=== PATIENT | male | born 1980 | race Caucasian/White ===

== ENCOUNTER 2018-06-21 14:48 | Inpatient (IN) | payer OTHER ==
[~2018-06-21] VITALS: Ht 177.8 cm; Wt 97.5 kg
[~2018-06-21 14:48] MED LIST: CRUTCH4 XX; IBUP800 PO; Naprosyn500 MG PO; Norco 5-325 Ta1 EACH PO; Zofran Odt4 MG PO; Zofran Odt4 MG SL
[2018-06-21 15:59] LABS: BASOPHILS ABSOLUTE AUTO 0.02 K/mm3 (0.00-0.23); BASOPHILS PERCENT AUTO 0 % (0-2); EOSINOPHILS ABSOLUTE AUTO 0.01 K/mm3 (0.00-0.68); EOSINOPHILS PERCENT AUTO 0 % (0-6); Hematocrit 49.1 % (37.0-53.0); Hemoglobin 16.3 g/dL (13.5-17.5); IMMATURE GRAN ABSOLUTE AUTO 0.05 K/mm3 (0.00-0.10); IMMATURE GRAN PERCENT AUTO 0 % (0-1); LYMPHOCYTES ABSOLUTE AUTO 2.07 K/mm3 (0.84-5.20); LYMPHOCYTES PERCENT AUTO 15 % (21-46); MONOCYTES ABSOLUTE AUTO 1.02 K/mm3 (0.16-1.47); MONOCYTES PERCENT AUTO 7 % (4-13); Mean Corpuscular HGB 29.1 pg (26.0-34.0); Mean Corpuscular HGB Conc 33.2 g/dL (31.5-36.5); Mean Corpuscular Volume 88 fL (80-100); Mean Platelet Volume 8.7 fL (9.1-12.4); NEUTROPHILS ABSOLUTE AUTO 10.93 K/mm3 (1.96-9.15); NEUTROPHILS PERCENT AUTO 78 % (41-73); Platelet Count 306 K/mm3 (150-400); RDW Coefficient Variation 12.5 % (11.7-14.2); RDW Standard Deviation 40.3 fL (35.1-46.3)
[2018-06-21 16:16] LABS: Alanine Aminotransfer (ALT/SGP 32 U/L (12-78); Albumin, Blood 4.4 g/dL (3.4-5.0); Albumin/Globulin Ratio 1.1 (0.8-1.8); Alk Phos 85 U/L (50-136); Anion Gap 8 mmol/L (6-16); Aspartate Aminotrans (AST/SGOT 22 U/L (12-37); Bilirubin, Total 1.5 mg/dL (0.1-1.0); Blood Urea Nitrogen 12 mg/dL (8-24); Bun/Creatinine Ratio 13.3 (12.0-20.0); CO2, Blood 25 mmol/L (21-32); Calcium, Blood 8.9 mg/dL (8.5-10.1); Chloride, Blood 102 mmol/L (98-108); Globulin, Blood 4.1 g/dL (2.2-4.0); Glomerular Filtration Rate >60 (60-); Glucose, Blood 103 mg/dL (70-99); Potassium, Blood 3.8 mmol/L (3.5-5.5); Sodium, Blood 135 mmol/L (136-145); Total Protein, Blood 8.5 g/dL (6.4-8.2)
[2018-06-22 05:36] LABS: Hematocrit 43.6 % (37.0-53.0); Hemoglobin 14.5 g/dL (13.5-17.5); Mean Corpuscular HGB 29.3 pg (26.0-34.0); Mean Corpuscular HGB Conc 33.3 g/dL (31.5-36.5); Mean Corpuscular Volume 88 fL (80-100); Platelet Count 268 K/mm3 (150-400); RDW Coefficient Variation 12.5 % (11.7-14.2); RDW Standard Deviation 40.2 fL (35.1-46.3); Red Blood Cell Count 4.95 M/mm3 (4.30-5.90); White Blood Cell Count 11.16 K/mm3 (4.00-11.30)
--- NOTE | 2018-06-22 06:21 | NUR ---
SHIFT SUMMARY PT ARRIVED TO ROOM APPROX 2029. A/O. ONLY C/O PAIN IN HEAD. REFUSED TRAMADOL AND MEDICATED PER EMAR C TYLENOL. SCD'S IN PLACE. WALKING ON L KNEE INDEPENDENTLY BUT WITH A SLIGHT LIMP. CALL LIGHT IN REACH.
--- NOTE | 2018-06-22 14:50 | NUR ---
CONSULT CALLED DR [facility] TO CONFIRM CONSULT HAS BEEN CALLED, THEY CONFIRMED THE CONSULT HAD BEEN DELIVERED TO DR YANEZ
--- NOTE | 2018-06-22 14:52 | NUR ---
LEG REDNESS DR YO NOTIFIED THAT THE REDNESS SURROUNDING THE PT'S L KNEE HAS INCREASED, AREA CIRCLED, NO INCREASE IN SWELLING
--- NOTE | 2018-06-22 16:47 | NUR ---
CONSULT NOTIFIED DR YO THAT DR YANEZ HAS NOT SEEN THE PT YET
--- NOTE | 2018-06-22 17:39 | NUR ---
SUMMARY PT AWAKE IN BED EATING HIS DINNER, PT HAS BEEN PLEASANT AND COOPERATIVE WITH CARE, DR YANEZ HAS NOT SEEN THE PT YET, DR YO AWARE, VSS, NO ACUTE CHANGES, WILL CONT TO MONITOR
--- NOTE | 2018-06-22 18:39 | NUR ---
DR YANEZ HERE TO SEE THE PT
--- NOTE | 2018-06-22 20:57 | NUR ---
NO ACUTE CHANGES NOTED. NO CURRENT COMPLAINTS OF PAIN OR DISCOMFORT NOTED. WILL CONTINUE TO MONITOR FOR CHANGES.
--- NOTE | 2018-06-22 22:03 | NUR ---
2030 REPORT RECEIVED. PTS LEFT KNEE WARM TO TOUCH WITH REDNESS AND SCABBED AREA AT KNEE CAP NOTED. PT HAPPY AND COOPERATIVE.
--- NOTE | 2018-06-23 04:58 | NUR ---
38 Y/O MALE STILL C/O LEFT KNEE PAIN WITH ULTRAM 50MG PO GIVEN WITH RELIEF. PTS LEFT KNEE STILL RED RED AND WARM TO TOUCH. PT DENIES NAUSEA. PTS CALL LIGHT AT SIDE WITH BED IN LOW POSITION.
--- NOTE | 2018-06-23 17:36 | NUR ---
SHIFT SUMMARY PT HAS HAD NO ACUTE CHANGES THIS SHIFT, MEDICATED PER MAR FOR PAIN, NO OTHER COMPLAINTS OF ANY KIND. PT IS BEDRESTING AT THIS TIME, WILL CONT TO MONITOR UNTIL REPORT GIVEN TO DEYANIRA RN.
--- NOTE | 2018-06-24 05:02 | NUR ---
SHIFT SUMMARY PT HAS RESTED OFF AND ON T/O THE NIGHT. INTERMITTENT PAIN TO LEFT ANKLE. ANKLE REMAINS SWOLLEN. MEDICATED WITH ULTRAM WHICH PROVIDED RELIEF. TEMP OF 101 THIS SHIFT, THAT RESPONDED TO TYLENOL. PT INDEPENDENT IN THE ROOM. IV ABX PER ORDERS. PLAN FOR POSSIBLE DC TODAY. WILL CONTINUE TO MONITOR AND REPORT TO ONCOMING RN.
[2018-06-24] MEDS ORDERED: COLCHICINE0.6 MG PO (14:56)
[2018-06-24] MEDS ORDERED: ACET325 PO (14:56)
[2018-06-24] MEDS ORDERED: CEPH500 PO (14:57)
[2018-06-24] MEDS ORDERED: SACC250C PO (14:57)
[2018-06-24] MEDS ORDERED: IBUP400 PO (14:57)
[2018-06-24] MEDS ORDERED: NICO21TP TOP (14:57)
--- NOTE | 2018-06-24 15:51 | NUR ---
SHIFT SUMMARY/DC OK HAS HAD NO ACUTE CHANGES THIS SHIFT, NO COMPLAINTS OF ANY KIND. REVIEWED DC INSTRUCTIONS W/PT WHO VERBALIZED UNDERSTANDING. PT WAS TRANSPORTED VIA W/C TO DC IN PRIVATE VEHICLE @ [id number].
== END 2018-06-24 15:37 | disposition home or self-care (01) | DRG 872 ==
LOC: ER 14:48 → MEDS 18:46
PROVIDERS: Nurse Practitioner Acute Care; Physician Assistant; ADMIT Internal Medicine
DX: A41.9 Sepsis, unspecified organism (principal); L03.116 Cellulitis of left lower limb; I10 Essential (primary) hypertension; M70.42 Prepatellar bursitis, left knee; W18.30XA Fall on same level, unspecified, initial encounter; M10.072 Idiopathic gout, left ankle and foot; F17.220 Nicotine dependence, chewing tobacco, uncomplicated
CPT/HCPCS: 36415; 73502; 73564; 73610; 76882; 80053; 83605; 83735; 85025; 85027; 87040; 90471; 90714; 96365; 99285-25; J0690; J2405; J7030

== ENCOUNTER 2019-05-27 21:49 | Emergency (ER) | payer OTHER ==
[~2019-05-27] VITALS: Ht 177.8 cm; Wt 90.7 kg
[~2019-05-27 21:49] MED LIST changes: +ACET325 PO; +CEPH500 PO; +COLCHICINE0.6 MG PO; +IBUP400 PO; +NICO21TP TOP; +SACC250C PO
[2019-05-27 23:04] LABS: Influenza A Negative (NEGATIVE); Influenza B Negative (NEGATIVE)
== END 2019-05-28 02:45 | disposition left against medical advice (07) ==
LOC: ER 21:49
PROVIDERS: Physician Assistant
DX: Z53.21 Procedure and treatment not carried out due to patient leaving prior to being seen by health care provider (principal)
CPT/HCPCS: 71046; 87804

== ENCOUNTER 2020-05-06 19:54 | Emergency (ER) | payer OTHER ==
[~2020-05-06] VITALS: Ht 177.8 cm; Wt 90.7 kg
[2020-05-06 20:40] LABS: BASOPHILS ABSOLUTE AUTO 0.03 K/mm3 (0.00-0.23); BASOPHILS PERCENT AUTO 0 % (0-2); EOSINOPHILS ABSOLUTE AUTO 0.19 K/mm3 (0.00-0.68); EOSINOPHILS PERCENT AUTO 2 % (0-6); Hematocrit 47.5 % (37.0-53.0); Hemoglobin 16.1 g/dL (13.5-17.5); IMMATURE GRAN ABSOLUTE AUTO 0.02 K/mm3 (0.00-0.10); IMMATURE GRAN PERCENT AUTO 0 % (0-1); LYMPHOCYTES ABSOLUTE AUTO 2.57 K/mm3 (0.84-5.20); LYMPHOCYTES PERCENT AUTO 27 % (21-46); MONOCYTES ABSOLUTE AUTO 1.01 K/mm3 (0.16-1.47); MONOCYTES PERCENT AUTO 11 % (4-13); Mean Corpuscular HGB 29.4 pg (26.0-34.0); Mean Corpuscular HGB Conc 33.9 g/dL (31.5-36.5); Mean Corpuscular Volume 87 fL (80-100); Mean Platelet Volume 8.9 fL (9.1-12.4); NEUTROPHILS ABSOLUTE AUTO 5.67 K/mm3 (1.96-9.15); NEUTROPHILS PERCENT AUTO 60 % (41-73); Platelet Count 290 K/mm3 (150-400); RDW Coefficient Variation 12.8 % (11.7-14.2); RDW Standard Deviation 40.2 fL (35.1-46.3); Red Blood Cell Count 5.48 M/mm3 (4.30-5.90); White Blood Cell Count 9.49 K/mm3 (4.00-11.30)
[2020-05-06 20:57] LABS: Troponin I <0.015 ng/mL (0.000-0.040)
[2020-05-06 20:58] LABS: Alanine Aminotransfer (ALT/SGP 41 U/L (12-78); Albumin, Blood 3.8 g/dL (3.4-5.0); Albumin/Globulin Ratio 0.9 (0.8-1.8); Alk Phos 91 U/L (50-136); Anion Gap 6 mmol/L (6-16); Aspartate Aminotrans (AST/SGOT 33 U/L (12-37); Bilirubin, Total 0.6 mg/dL (0.1-1.0); Blood Urea Nitrogen 8 mg/dL (8-24); Bun/Creatinine Ratio 8.9 (12.0-20.0); CO2, Blood 24 mmol/L (21-32); Calcium, Blood 8.5 mg/dL (8.5-10.1); Chloride, Blood 108 mmol/L (98-108); Globulin, Blood 4.3 g/dL (2.2-4.0); Glomerular Filtration Rate >60 (60-); Glucose, Blood 93 mg/dL (70-99); Potassium, Blood 4.2 mmol/L (3.5-5.5); Sodium, Blood 138 mmol/L (136-145); Total Protein, Blood 8.1 g/dL (6.4-8.2)
[2020-05-06] MEDS ORDERED: ACETAMINOPHEN500 MG PO (23:28)
[2020-05-06] MEDS ORDERED: IBUP600 PO (23:28)
== END 2020-05-06 23:40 | disposition home or self-care (01) ==
LOC: ER 19:54
PROVIDERS: Physician Assistant
DX: J06.9 Acute upper respiratory infection, unspecified (principal); R42 Dizziness and giddiness; F17.220 Nicotine dependence, chewing tobacco, uncomplicated
CPT/HCPCS: 36415; 71045; 80053; 84484; 85025; 93005; 93010; 99284-25

== ENCOUNTER 2020-07-01 10:41 | Emergency (ER) | payer OTHER ==
[~2020-07-01] VITALS: Ht 177.8 cm; Wt 100.7 kg
[~2020-07-01 10:41] MED LIST changes: +ACETAMINOPHEN500 MG PO; +IBUP600 PO
[2020-07-01 12:42] LABS: BASOPHILS ABSOLUTE AUTO 0.02 K/mm3 (0.00-0.23); BASOPHILS PERCENT AUTO 0 % (0-2); EOSINOPHILS ABSOLUTE AUTO 0.08 K/mm3 (0.00-0.68); EOSINOPHILS PERCENT AUTO 1 % (0-6); Hematocrit 44.8 % (37.0-53.0); Hemoglobin 15.4 g/dL (13.5-17.5); IMMATURE GRAN ABSOLUTE AUTO 0.06 K/mm3 (0.00-0.10); IMMATURE GRAN PERCENT AUTO 1 % (0-1); LYMPHOCYTES ABSOLUTE AUTO 2.07 K/mm3 (0.84-5.20); LYMPHOCYTES PERCENT AUTO 17 % (21-46); MONOCYTES ABSOLUTE AUTO 0.88 K/mm3 (0.16-1.47); MONOCYTES PERCENT AUTO 7 % (4-13); Mean Corpuscular HGB 29.7 pg (26.0-34.0); Mean Corpuscular HGB Conc 34.4 g/dL (31.5-36.5); Mean Corpuscular Volume 87 fL (80-100); Mean Platelet Volume 8.3 fL (9.1-12.4); NEUTROPHILS ABSOLUTE AUTO 8.84 K/mm3 (1.96-9.15); NEUTROPHILS PERCENT AUTO 74 % (41-73); Platelet Count 302 K/mm3 (150-400); RDW Coefficient Variation 12.4 % (11.7-14.2); RDW Standard Deviation 39.5 fL (35.1-46.3); Red Blood Cell Count 5.18 M/mm3 (4.30-5.90); White Blood Cell Count 11.95 K/mm3 (4.00-11.30)
[2020-07-01 12:59] LABS: Anion Gap 7 mmol/L (6-16); Blood Urea Nitrogen 10 mg/dL (8-24); Bun/Creatinine Ratio 12.9 (12.0-20.0); CO2, Blood 25 mmol/L (21-32); Calcium, Blood 8.9 mg/dL (8.5-10.1); Chloride, Blood 106 mmol/L (98-108); Creatinine, Blood 0.78 mg/dL (0.60-1.20); Glomerular Filtration Rate >60 (60-); Glucose, Blood 115 mg/dL (70-99); Potassium, Blood 4.2 mmol/L (3.5-5.5); Sodium, Blood 138 mmol/L (136-145); Uric Acid, Blood 7.4 mg/dL (3.5-7.2)
[2020-07-01] MEDS ORDERED: NAPROXEN250 M1 PO (16:07)
[2020-07-01] MEDS ORDERED: CEPH500 PO (16:07)
[2020-07-01] MEDS ORDERED: Roxicodone5 MG PO (16:07)
== END 2020-07-01 16:20 | disposition home or self-care (01) ==
LOC: ER 10:41
PROVIDERS: Emergency Medicine
DX: M77.8 Other enthesopathies, not elsewhere classified (principal); F17.220 Nicotine dependence, chewing tobacco, uncomplicated
CPT/HCPCS: 20606; 36415; 80048; 84550; 85025; 86140; 87070; 87075; 87205; 99284-25; A9270-GY

== ENCOUNTER 2020-12-01 19:02 | Emergency (ER) | payer OTHER ==
[~2020-12-01] VITALS: Ht 177.8 cm; Wt 96.6 kg
[~2020-12-01 19:02] MED LIST changes: +NAPROXEN250 M1 PO; +Roxicodone5 MG PO
[2020-12-01] MEDS ORDERED: ONDA4ODT MM (19:49)
== END 2020-12-01 20:36 | disposition home or self-care (01) ==
LOC: ER 19:02
DX: U07.1 COVID-19 (principal); M10.9 Gout, unspecified; F17.220 Nicotine dependence, chewing tobacco, uncomplicated; Z79.899 Other long term (current) drug therapy
CPT/HCPCS: 96374; 99282-25; J2405

== ENCOUNTER → 2021-06-07 | Outpatient (CLI) | payer OTHER ==
[~2021-06-07] MED LIST changes: +ONDA4ODT MM
[2021-06-07 09:57] LABS: Glucose, Body Fluid 5 mg/dL; Protein, Body Fluid 4.9 g/dL
[2021-06-07 10:04] LABS: BODY FLUID RBC 0.012 M/mm3 (0-0); RBC Count, Synovial Fluid 12000 /mm3 (0-0); WBC Count, Synovial Fluid 2872 /mm3 (0-180)
[2021-06-07 10:33] LABS: Lymphs, Synovial Fluid 6 % (0-15); Monocytes/Macrophages, Synovia 27 % (0-65); Neutrophils, Synovial Fluid 67 % (0-24)
[2021-06-07 10:35] LABS: Appearance, Synovial Fluid Cloudy (Clear); Color, Synovial Fluid Dark Yellow (None-P Yel)
== END ==
LOC: LAB SHORT 03:39
PROVIDERS: Physician Assistant Medical
DX: M70.52 Other bursitis of knee, left knee (principal)
CPT/HCPCS: 82945; 84157; 89051

== ENCOUNTER 2022-03-09 02:12 | Emergency (ER) | payer OTHER ==
[~2022-03-09] VITALS: Ht 175.3 cm; Wt 99.8 kg
[2022-03-09] MEDS ORDERED: COLCHICINE0.6 MG PO (03:06)
[2022-03-09] MEDS ORDERED: ONDA4ODT MM (03:13)
== END 2022-03-09 03:26 | disposition home or self-care (01) ==
LOC: ER 02:12
DX: M10.9 Gout, unspecified (principal); I10 Essential (primary) hypertension; Z79.899 Other long term (current) drug therapy; F17.220 Nicotine dependence, chewing tobacco, uncomplicated
CPT/HCPCS: A9270

== ENCOUNTER → 2024-02-20 | Outpatient (CLI) | payer OTHER ==
[2024-02-20 10:15] LABS: BASOPHILS ABSOLUTE AUTO 0.02 K/mm3 (0.00-0.23); BASOPHILS PERCENT AUTO 0 % (0-2); EOSINOPHILS ABSOLUTE AUTO 0.09 K/mm3 (0.00-0.68); EOSINOPHILS PERCENT AUTO 1 % (0-6); Hematocrit 48.9 % (37.0-53.0); Hemoglobin 16.4 g/dL (13.5-17.5); IMMATURE GRAN ABSOLUTE AUTO 0.05 K/mm3 (0.00-0.10); IMMATURE GRAN PERCENT AUTO 1 % (0-1); LYMPHOCYTES ABSOLUTE AUTO 2.05 K/mm3 (0.84-5.20); LYMPHOCYTES PERCENT AUTO 23 % (21-46); MONOCYTES ABSOLUTE AUTO 0.75 K/mm3 (0.16-1.47); MONOCYTES PERCENT AUTO 9 % (4-13); Mean Corpuscular HGB 28.8 pg (26.0-34.0); Mean Corpuscular HGB Conc 33.5 g/dL (31.5-36.5); Mean Corpuscular Volume 86 fL (80-100); Mean Platelet Volume 8.2 fL (9.1-12.4); NEUTROPHILS ABSOLUTE AUTO 5.86 K/mm3 (1.96-9.15); NEUTROPHILS PERCENT AUTO 67 % (41-73); Platelet Count 328 K/mm3 (150-400); RDW Coefficient Variation 13.4 % (11.7-14.2); White Blood Cell Count 8.82 K/mm3 (4.00-11.30)
[2024-02-20 10:33] LABS: Albumin, Blood 3.9 g/dL (3.4-5.0); Albumin/Globulin Ratio 0.9 (0.8-1.8); Bilirubin, Total 0.5 mg/dL (0.1-1.0); Bun/Creatinine Ratio 6.2 (12.0-20.0); Calcium, Blood 9.3 mg/dL (8.5-10.1); Creatinine, Blood 1.13 mg/dL (0.60-1.20); Globulin, Blood 4.5 g/dL (2.2-4.0); Potassium, Blood 3.8 mmol/L (3.5-5.5); Total Protein, Blood 8.4 g/dL (6.4-8.2)
== END | disposition home or self-care (01) ==
LOC: LAB SHORT 10:11
PROVIDERS: Physician Assistant
DX: I10 Essential (primary) hypertension (principal); M25.531 Pain in right wrist
CPT/HCPCS: 80053; 83690; 84484; 84550; 85025